=== PATIENT | female | born 1960 | race Caucasian/White ===

== ENCOUNTER 2020-04-20 05:09 | Inpatient (IN) | payer BC ==
[2020-04-20 05:53] LABS: Absolute Lymphocytes (CBC) 2.8 K/uL (0.7-4.9); Basophils % 0.5 % (0-1.3); Hematocrit 41.3 % (36.0-45.0); Lymphocytes % 28.6 % (15.3-44.8); MPV 8.8 fL (7.6-11.3); RBC Red Blood Cell Count 4.07 M/uL (3.86-4.86)
[2020-04-20] MEDS ORDERED: ONDANSETRON 4 MG/2 ML VIAL ONE (05:59)
[2020-04-20] MEDS ORDERED: MORPHINE 4 MG/ML SYR ONE (05:59)
[2020-04-20] MEDS ORDERED: NA CHLORIDE 0.9% 1,000 ML ONE ×2 (05:59→06:25)
[2020-04-20] MEDS ORDERED: HYDROMORPHONE HCL 1 MG/ML INJ ONE (06:24)
[2020-04-20] MEDS ORDERED: METOPROLOL TARTRATE 5 MG/5 ML INJ IV ONE (07:28)
[2020-04-20 07:59] LABS: Albumin 3.8 g/dL (3.4-5.0); Bilirubin Direct 0.2 mg/dL (0-0.2); Bilirubin Total 0.6 mg/dL (0.2-1.0); Potassium 4.2 mmol/L (3.5-5.1); Protein, Total 7.2 g/dL (6.4-8.2)
--- NOTE | 2020-04-20 08:51 | RAD REPORT ---
EXAM DESCRIPTION: CT - Abdomen Pelvis W Contrast - 04/20/2020 8:30 am CLINICAL HISTORY: Abdominal pain COMPARISON: none. TECHNIQUE: Computed axial tomography of the abdomen pelvis was obtained. 100 cc Isovue-300 was admin istered intravenously. Oral contrast was not requested which limits evaluation of bowel and appendix. All CT scans are performed using dose optimization technique as appropriate and may include automated exposure control or mA/KV adjustment according to patient size. FINDINGS: The liver has heterogeneous density. Cholecystectomy. The spleen, pancreas, adrenals and kidneys unremarkable Mild posterior subluxation of L1 on L2. Spondylosis involves the thoracic and lumbar spine. The appendix is not clearly seen. Evaluation is limited secondary to the lack of oral contrast. Small amount of ascites surrounds the liver and within the pelvis. Hysterectomy. Moderate amount of s tool within the right colon IMPRESSION: Heterogeneous liver probably secondary to inflammation. Small amount of ascites
--- NOTE | 2020-04-20 08:52 | RAD REPORT ---
EXAM DESCRIPTION: René Single View04/20/2020 6:48 am CLINICAL HISTORY: Chest pain COMPARISON: none FINDINGS: The lungs appear clear of acute infiltrate. The heart is mildly enlarged. Breast implants IMPRESSION: No acute abnormalities displayed
--- NOTE | 2020-04-20 10:03 | ER ---
Nurse's Notes [facility] Name: Gracia Delarosa Age: 59 yrs Sex: Female : 1960 Arrival Date: 04/20/2020 Time: 05:14 Bed 8 Private MD: Diagnosis: Abdominal tenderness-intractable, sp lap gregoria ;Constipation Presentation: 04/20 05:24 Chief complaint: Patient states: I am having abdominal pain on the right lower side rr5 started 9 PM last night and feel nauseous. had my gallbladder removed last Wednesday. denies fever. Coronavirus screen: Client denies travel out of the [place] in the last 14 days. At this time, the client does not indicate any symptoms associated with coronavirus-19. Ebola Screen: Patient negative for fever greater than or equal to 101.5 degrees Fahrenheit, and additional compatible Ebola Virus Disease symptoms Patient denies exposure to infectious person. Patient denies travel to an Ebola-affected area in the 21 days before illness onset. Initial Sepsis Screen: Does the patient meet any 2 criteria? No. Patient's initial sepsis screen is negative. Does the patient have a suspected source of infection? Yes: Acute abdominal pain. Risk Assessment: Do you want to hurt yourself or someone else? Patient reports no desire to harm self or others. Onset of symptoms was April 19, 2020 at 21:00. 05:24 Method Of Arrival: Wheelchair rr5 05:24 Acuity: GORDON 3 rr5 Historical: - Allergies: 05:33 Codeine; rr5 - PMHx: 05:32 Hypothyroidism; Hypertension; GERD; Depression; Rheumatoid Arthritis; rr5 - PSHx: 05:32 Tonsillectomy; fusion C3-C5; shoulder surgery; breast augmentation; ectopic ; rr5 Hysterectomy; vaginal lift; tightened vagina; rectal prolapse; Knee surgery; - Immunization history:: Adult Immunizations up to date. - Social history:: Smoking status: unknown Patient uses alcohol, on a daily basis. Patient/guardian denies using street drugs. Screenin:54 Abuse screen: Denies threats or abuse. Denies injuries from another. Nutritional mg2 screening: No deficits noted. Tuberculosis screening: No symptoms or risk factors identified. Fall Risk IV access (20 points). Assessment: 05:52 General: Appears in no apparent distress. comfortable, Behavior is calm, cooperative. mg2 Pain: Complains of pain in abdomen Pain does not radiate. Pain currently is 8 out of 10 on a pain scale. Quality of pain is described as aching, Pain began gradually, Is intermittent. Neuro: Level of Consciousness is awake, alert, obeys commands, Oriented to person, place, time, situation. Cardiovascular: Capillary refill < 3 seconds Patient's skin is warm and dry. Respiratory: Airway is patent Respiratory effort is even, unlabored, Respiratory pattern is regular, symmetrical. GI: Bowel sounds present X 4 quads. Abd is soft. GI: Reports lower abdominal pain, nausea. : No signs and/or symptoms were reported regarding the genitourinary system. EENT: No signs and/or symptoms were reported regarding the EENT system. Derm: Skin is intact, is healthy with good turgor, Skin is pink, warm \T\ dry. normal. Musculoskeletal: Circulation, motion, and sensation intact. Capillary refill < 3 seconds. 06:15 Reassessment: Patient appears in no apparent distress at this time. ED provider aware rr5 with order made and carried out Patient states symptoms have not improved. 07:00 Reassessment: ED provider aware for the BP 196/117 mmHg with order made and carried out.rr5 07:34 Reassessment: Pt requesting more pain medication. Informed Dr Tyler and no pain sv medication to be given at this time until after the CT is done and read. Informed pt of POC. 07:34 Reassessment: No changes from previously documented assessment. Patient and/or family sv updated on plan of care and expected duration. Pain level reassessed. Patient is alert, oriented x 3, equal unlabored respirations, skin warm/dry/pink. GI: Abdomen is flat, bruised on right upper quadrant, left upper quadrant, right lower quadrant and left lower quadrant. 08:01 Reassessment: Informed Zehra in CT pt's creatinine is resulted. sv 08:30 Reassessment: Patient appears in no apparent distress at this time. No changes from sv previously documented assessment. Patient and/or family updated on plan of care and expected duration. Pain level reassessed. Patient is alert, oriented x 3, equal unlabored respirations, skin warm/dry/pink. 10:14 Reassessment: Patient appears in no apparent distress at this time. No changes from sv previously documented assessment. Patient and/or family updated on plan of care and expected duration. Pain level reassessed. Patient is alert, oriented x 3, equal unlabored respirations, skin warm/dry/pink. 11:30 Reassessment: Patient appears in no apparent distress at this time. Patient and/or sv family updated on plan of care and expected duration. Pain level reassessed. Patient is alert, oriented x 3, equal unlabored respirations, skin warm/dry/pink. 13:10 Reassessment: Dr Mccall at the bedside. sv 13:50 Reassessment: Patient appears in no apparent distress at this time. Patient and/or sv family updated on plan of care and expected duration. Pain level reassessed. Patient is alert, oriented x 3, equal unlabored respirations, skin warm/dry/pink. Pt stated that her pain has come back and is requesting pain medication. Informed Dr Mccall, medication order received. See MAR. 14:04 Reassessment: Patient appears in no apparent distress at this time. Patient and/or sv family updated on plan of care and expected duration. Pain level reassessed. Patient is alert, oriented x 3, equal unlabored respirations, skin warm/dry/pink. Vital Signs: 05:24 BP 178 / 135; Pulse 65; Resp 19; Temp 97.7; Pulse Ox 100% ; Weight 68.04 kg; Height 5 rr5 ft. 7 in. (170.18 cm); Pain 10/10; 06:00 BP 178 / 90; Pulse 73; Resp 18; Pulse Ox 100% on R/A; mg2 06:35 BP 196 / 117; Pulse 77; Resp 19; Pulse Ox 99% ; rr5 07:24 BP 193 / 99; Pulse 66; Resp 19; Pulse Ox 100% ; sv 07:59 BP 172 / 114; Pulse 59; Resp 16; Pulse Ox 100% ; sv 09:06 BP 192 / 86; Pulse 60; Resp 16; Pulse Ox 95% ; sv 10:14 BP 201 / 97; Pulse 64; Resp 16; Pulse Ox 97% ; sv 10:54 BP 160 / 89; Pulse 62; Resp 16; Pulse Ox 96% ; sv 12:15 BP 162 / 78; Pulse 63; Resp 16; Pulse Ox 98% ; sv 13:00 BP 170 / 89; Pulse 67; Resp 18; Pulse Ox 98% on R/A; sv 14:00 BP 170 / 82; Pulse 68; Resp 18; Pulse Ox 99% ; sv 14:45 BP 186 / 91; Pulse 65; Resp 16; Pulse Ox 99% ; sv 05:24 Body Mass Index 23.49 (68.04 kg, 170.18 cm) rr5 ED Course: 05:14 Patient arrived in ED. ag3 05:24 Noé Coleman RN is Primary Nurse. rr5 05:28 Triage completed. rr5 05:49 Elmo Tyler MD is Attending Physician. pkl 05:49 Inserted saline lock: 20 gauge in right antecubital area, using aseptic technique. ds4 05:54 No provider procedures requiring assistance completed. mg2 05:54 Patient has correct armband on for positive identification. Pulse ox on. NIBP on. Door mg2 closed. Warm blanket given. 05:54 Arm band placed on. mg2 06:48 XRAY Chest (1 view) In Process Unspecified. EDMS 07:22 Primary Nurse role handed off by Noé Coleman RN sv 07:22 Helen Padilla RN is Primary Nurse. sv 07:[address] Scan. sv 07:24 Awaiting lab results. sv 08:18 Attending Physician role handed off by Elmo Tyler MD kathy 08:18 Marcio Leon MD is Attending Physician. kathy 08:31 CT Abd/Pelvis - IV Contrast Only In Process Unspecified. EDMS 09:06 Awaiting disposition, Awaiting re-evaluation by ER provider. sv 10:37 Sebastian Mccall MD is Hospitalizing Provider. kathy 15:07 Patient admitted, IV remains in place. intact. sv Administered Medications: Discontinued: NS 0.9% 1000 ml IV at 100 ml/hr once 05:48 Drug: morphine 4 mg Route: IVP; Site: right antecubital; mg2 06:18 Follow up: Response: No adverse reaction mg2 05:48 Drug: Zofran (Ondansetron) 4 mg Route: IVP; Site: right antecubital; mg2 06:18 Follow up: Response: No adverse reaction mg2 05:48 Drug: NS 0.9% 1000 ml Route: IV; Rate: 1000 ml; Site: right antecubital; mg2 07:20 Follow up: Response: No adverse reaction; IV Status: Completed infusion; IV Intake: rr5 1000ml 06:17 Drug: Dilaudid 1 mg Route: IVP; Site: right antecubital; mg2 07:20 Follow up: Response: No adverse reaction; No change in condition; Pain is unchanged, rr5 physician notified; RASS: Alert and Calm (0) 07:10 Drug: Lopressor 5 mg Route: IVP; Site: right antecubital; rr5 07:58 Follow up: Response: No adverse reaction sv 07:20 Drug: NS 0.9% 1000 ml Route: IV; Rate: 100 ml/hr; Site: right antecubital; rr5 10:13 Drug: NS 0.9% 500 ml Route: IV; Rate: bolus; Site: right antecubital; sv 11:00 Follow up: Response: No adverse reaction; IV Status: Completed infusion; IV Intake: sv 500ml 10:13 Drug: TORadol 30 mg Route: IVP; Site: right antecubital; sv 11:00 Follow up: Response: No adverse reaction sv 11:00 Drug: NS 0.9% 1000 ml Route: IV; Rate: 125 ml/hr; Site: right antecubital; sv 14:30 Follow up: Response: No adverse reaction; IV Status: Infusion continued upon admission sv 11:30 Drug: Pepcid 20 mg Route: IVP; Site: right antecubital; sv 12:00 Follow up: Response: No adverse reaction sv 12:24 Not Given (Patient stated is having regular bowel movements and thinks its not vg1 necessary to take the medication. Provider notified.): Lactulose 30 grams 45 ml PO once 12:25 Not Given (Patient stated is having regular bowel movements and thinks its not vg1 necessary to take medication. Provider notified.): Dulcolax Suppository 10 mg MD once 13:53 Drug: TORadol 30 mg Route: IVP; Site: right antecubital; sv 14:04 Follow up: Response: No adverse reaction sv 14:03 Drug: Lovenox 1 mg/kg Route: Sub-Q; Site: left lower abdomen; sv 14:30 Follow up: Response: No adverse reaction sv Intake: 07:20 IV: 1000ml; Total: 1000ml. rr5 11:00 IV: 500ml; Total: 1500ml. sv Outcome: 10:02 ER care complete, transfer ordered by . kathy 10:39 Decision to Hospitalize by Provider. kathy 15:07 Admitted to Med/surg accompanied by tech, via wheelchair, room 231, with chart, Report sv called to Yajaira LINDSAY 15:07 Condition: stable 15:07 Instructed on the need for admit. 15:12 Patient left the ED. sv Signatures: Dispatcher [employer] Helen Lama RN RN Marcio Mathur MD MD cha Lam, Pin, MD MD pkl Swanson, Donovan ds4 Angel Roe RN RN [facility] Jacquelin Bennett Raymond, RN RN rr5 Maye Ferrari RN vg1 Corrections: (The following items were deleted from the chart) 05:33 05:32 Home Meds: Codeine Oral; rr5 rr5
--- NOTE | 2020-04-20 10:03 | EDPHYS ---
Physician Documentation [facility] [place] Name: Gracia Delarosa Age: 59 yrs Sex: Female : 1960 Arrival Date: 04/20/2020 Time: 05:14 Bed 8 Private MD: GENA Physician Marcio Leon HPI: 04/20 06:00 This 59 yrs old Female presents to ER via Wheelchair with complaints of Abdominal Pain. pkl 06:00 The patient presents with abdominal pain in the right upper quadrant. Onset: The pkl symptoms/episode began/occurred last night. The symptoms do not radiate. Associated signs and symptoms: none. S/P Lap. gregoria 04/15/20. Historical: - Allergies: 05:33 Codeine; rr5 - PMHx: 05:32 Hypothyroidism; Hypertension; GERD; Depression; Rheumatoid Arthritis; rr5 - PSHx: 05:32 Tonsillectomy; fusion C3-C5; shoulder surgery; breast augmentation; ectopic ; rr5 Hysterectomy; vaginal lift; tightened vagina; rectal prolapse; Knee surgery; - Immunization history:: Adult Immunizations up to date. - Social history:: Smoking status: unknown Patient uses alcohol, on a daily basis. Patient/guardian denies using street drugs. ROS: 06:00 Eyes: Negative for injury, pain, redness, and discharge, ENT: Negative for injury, pkl pain, and discharge, Neck: Negative for injury, pain, and swelling, Cardiovascular: Negative for chest pain, palpitations, and edema, Respiratory: Negative for shortness of breath, cough, wheezing, and pleuritic chest pain, Abdomen/GI: Negative for abdominal pain, nausea, vomiting, diarrhea, and constipation, Back: Negative for injury and pain, : Negative for injury, bleeding, discharge, and swelling, MS/Extremity: Negative for injury and deformity. 06:00 Skin: Positive for skin tear both forearms. 06:00 Neuro: Positive for altered mental status. Exam: 06:16 Head/Face: Normocephalic, atraumatic. Eyes: Pupils equal round and reactive to light, pkl extra-ocular motions intact. Lids and lashes normal. Conjunctiva and sclera are non-icteric and not injected. Cornea within normal limits. Periorbital areas with no swelling, redness, or edema. ENT: Nares patent. No nasal discharge, no septal abnormalities noted. Tympanic membranes are normal and external auditory canals are clear. Oropharynx with no redness, swelling, or masses, exudates, or evidence of obstruction, uvula midline. Mucous membranes moist. Neck: Trachea midline, no thyromegaly or masses palpated, and no cervical lymphadenopathy. Supple, full range of motion without nuchal rigidity, or vertebral point tenderness. No Meningismus. Chest/axilla: Normal chest wall appearance and motion. Nontender with no deformity. No lesions are appreciated. Cardiovascular: Regular rate and rhythm with a normal S1 and S2. No gallops, murmurs, or rubs. Normal PMI, no JVD. No pulse deficits. Respiratory: Lungs have equal breath sounds bilaterally, clear to auscultation and percussion. No rales, rhonchi or wheezes noted. No increased work of breathing, no retractions or nasal flaring. 06:16 Abdomen/GI: Bowel sounds: normal, Palpation: soft, mild abdominal tenderness, in the right upper quadrant. 06:16 Back: Exam negative for acute changes. 06:16 : Exam negative for acute changes. 06:16 Musculoskeletal/extremity: Exam is negative for acute changes. 06:16 Skin: Exam negative for rash. 06:16 Neuro: Orientation: is normal, Mentation: is normal, Cranial nerves: grossly normal, Motor: is normal. Vital Signs: 05:24 BP 178 / 135; Pulse 65; Resp 19; Temp 97.7; Pulse Ox 100% ; Weight 68.04 kg; Height 5 rr5 ft. 7 in. (170.18 cm); Pain 10/10; 06:00 BP 178 / 90; Pulse 73; Resp 18; Pulse Ox 100% on R/A; mg2 06:35 BP 196 / 117; Pulse 77; Resp 19; Pulse Ox 99% ; rr5 07:24 BP 193 / 99; Pulse 66; Resp 19; Pulse Ox 100% ; sv 07:59 BP 172 / 114; Pulse 59; Resp 16; Pulse Ox 100% ; sv 09:06 BP 192 / 86; Pulse 60; Resp 16; Pulse Ox 95% ; sv 10:14 BP 201 / 97; Pulse 64; Resp 16; Pulse Ox 97% ; sv 10:54 BP 160 / 89; Pulse 62; Resp 16; Pulse Ox 96% ; sv 12:15 BP 162 / 78; Pulse 63; Resp 16; Pulse Ox 98% ; sv 13:00 BP 170 / 89; Pulse 67; Resp 18; Pulse Ox 98% on R/A; sv 14:00 BP 170 / 82; Pulse 68; Resp 18; Pulse Ox 99% ; sv 14:45 BP 186 / 91; Pulse 65; Resp 16; Pulse Ox 99% ; sv 05:24 Body Mass Index 23.49 (68.04 kg, 170.18 cm) rr5 MDM: 05:49 Patient medically screened. pkl 10:02 Differential diagnosis: bowel obstruction, gastritis, Hepatitis, non-specific abd pain, kathy pancreatitis, Peptic Ulcer Disease, Peritonitis. Data reviewed: vital signs, nurses notes, lab test result(s), EKG, radiologic studies, CT scan, plain films. Data interpreted: monitoring tech: rate is 60 beats/min, Pulse oximetry: on room air is 95 %. Test interpretation: by ED physician or midlevel provider: ECG, plain radiologic studies. Counseling: I had a detailed discussion with the patient and/or guardian regarding: the historical points, exam findings, and any diagnostic results supporting the discharge/admit diagnosis, lab results, radiology results, the need to transfer to another facility, for higher level of care, [facility] does not immediately have the required specialist. 04/20 05:31 Order name: Basic Metabolic Panel; Complete Time: 08:05 lp1 04/20 05:31 Order name: CBC with Diff; Complete Time: 07:07 lp1 04/20 05:31 Order name: LFT's; Complete Time: 08:05 lp1 04/20 05:31 Order name: PT-INR lp1 04/20 05:31 Order name: XRAY Chest (1 view); Complete Time: 09:48 lp1 04/20 05:57 Order name: Lipase; Complete Time: 08:05 EDMS 04/20 07:21 Order name: CT Abd/Pelvis - IV Contrast Only; Complete Time: 09:48 pkl 04/20 11:00 Order name: COVID-19 sv 04/20 12:33 Order name: CBC with Automated Diff EDMS 04/20 12:33 Order name: CBC with Automated Diff EDMS 04/20 12:33 Order name: Comprehensive Metabolic Panel EDMS 04/20 12:33 Order name: Comprehensive Metabolic Panel EDMS 04/20 12:33 Order name: Lactate EDND 04/20 12:33 Order name: Lactate EDND 04/20 12:33 Order name: Procalcitonin EDND 04/20 12:33 Order name: Procalcitonin EDND 04/20 13:53 Order name: SARS-COV-2 RT PCR EDND 04/20 05:31 Order name: EKG; Complete Time: 05:32 lp1 04/20 05:31 Order name: IV Saline Lock; Complete Time: 05:49 lp1 04/20 05:31 Order name: Labs collected and sent; Complete Time: 05:49 lp1 04/20 05:31 Order name: O2 Per Protocol; Complete Time: 05:49 lp1 04/20 05:31 Order name: O2 Sat Monitoring; Complete Time: 05:49 lp1 04/20 05:50 Order name: IV Saline Lock; Complete Time: 05:54 mg2 04/20 05:50 Order name: Labs collected and sent; Complete Time: 05:54 mg2 04/20 12:33 Order name: CONS Pharmacy Consult EDND 04/20 12:33 Order name: Heart Healthy EDND Administered Medications: Discontinued: NS 0.9% 1000 ml IV at 100 ml/hr once 05:48 Drug: morphine 4 mg Route: IVP; Site: right antecubital; mg2 06:18 Follow up: Response: No adverse reaction mg2 05:48 Drug: Zofran (Ondansetron) 4 mg Route: IVP; Site: right antecubital; mg2 06:18 Follow up: Response: No adverse reaction mg2 05:48 Drug: NS 0.9% 1000 ml Route: IV; Rate: 1000 ml; Site: right antecubital; mg2 07:20 Follow up: Response: No adverse reaction; IV Status: Completed infusion; IV Intake: rr5 1000ml 06:17 Drug: Dilaudid 1 mg Route: IVP; Site: right antecubital; mg2 07:20 Follow up: Response: No adverse reaction; No change in condition; Pain is unchanged, rr5 physician notified; RASS: Alert and Calm (0) 07:10 Drug: Lopressor 5 mg Route: IVP; Site: right antecubital; rr5 07:58 Follow up: Response: No adverse reaction sv 07:20 Drug: NS 0.9% 1000 ml Route: IV; Rate: 100 ml/hr; Site: right antecubital; rr5 10:13 Drug: NS 0.9% 500 ml Route: IV; Rate: bolus; Site: right antecubital; sv 11:00 Follow up: Response: No adverse reaction; IV Status: Completed infusion; IV Intake: sv 500ml 10:13 Drug: TORadol 30 mg Route: IVP; Site: right antecubital; sv 11:00 Follow up: Response: No adverse reaction sv 11:00 Drug: NS 0.9% 1000 ml Route: IV; Rate: 125 ml/hr; Site: right antecubital; sv 14:30 Follow up: Response: No adverse reaction; IV Status: Infusion continued upon admission sv 11:30 Drug: Pepcid 20 mg Route: IVP; Site: right antecubital; sv 12:00 Follow up: Response: No adverse reaction sv 12:24 Not Given (Patient stated is having regular bowel movements and thinks its not vg1 necessary to take the medication. Provider notified.): Lactulose 30 grams 45 ml PO once 12:25 Not Given (Patient stated is having regular bowel movements and thinks its not vg1 necessary to take medication. Provider notified.): Dulcolax Suppository 10 mg ND once 13:53 Drug: TORadol 30 mg Route: IVP; Site: right antecubital; sv 14:04 Follow up: Response: No adverse reaction sv 14:03 Drug: Lovenox 1 mg/kg Route: Sub-Q; Site: left lower abdomen; sv 14:30 Follow up: Response: No adverse reaction sv Disposition: 04/20/20 10:39 Hospitalization ordered by Sebastian Mccall for Observation. Preliminary diagnosis are Abdominal tenderness - intractable, sp lap gregoria , Constipation. - Bed requested for Telemetry/MedSurg (observation). - Status is Observation. sv - Condition is Fair. - Problem is new. - Symptoms have improved. Signatures: Dispatcher [employer] Helen Lama, RN Johanna Kimball RN Marcio Segura MD MD cha Lam, Pin, MD MD pkl Pena, Laura, RN RN lp1 Angel Roe RN RN mg2 Roque, Raymond, RN RN rr5 Maye Ferrari RN vg1 Corrections: (The following items were deleted from the chart) 05:33 05:32 Home Meds: Codeine Oral; rr5 rr5 05:52 05:31 EKG - Nurse/Tech ordered. lp1 mg2 05:57 05:32 MAGNESIUM+C.LAB.BRZ ordered. EDMS EDMS 05:57 05:32 PROBNP+C.LAB.BRZ ordered. EDMS EDMS 05:57 05:32 TROPONIN (EMERG DEPT USE ONLY)+C.LAB.BRZ ordered. EDMS EDMS 05:58 05:31 Cardiac monitoring ordered. lp1 ds4 05:58 05:49 BASIC METABOLIC PANEL+C.LAB.BRZ ordered. EDMS EDMS 05:58 05:49 CBC+H.LAB.BRZ ordered. EDMS EDMS 05:58 05:49 HEPATIC FUNCTION+C.LAB.BRZ ordered. EDMS EDMS 05:58 05:49 LIPASE+C.LAB.BRZ ordered. EDMS EDMS 05:58 05:51 LIPASE+C.LAB.BRZ ordered. EDMS EDMS 05:58 05:51 HEPATIC FUNCTION+C.LAB.BRZ ordered. EDMS EDMS 05:58 05:51 BASIC METABOLIC PANEL+C.LAB.BRZ ordered. EDMS EDMS 05:59 05:51 CBC+H.LAB.BRZ ordered. EDMS EDMS 06:16 06:00 Head/Face: Normocephalic, atraumatic. Eyes: Pupils equal round and reactive to pkl light, extra-ocular motions intact. Lids and lashes normal. Conjunctiva and sclera are non-icteric and not injected. Cornea within normal limits. Periorbital areas with no swelling, redness, or edema. ENT: Nares patent. No nasal discharge, no septal abnormalities noted. Tympanic membranes are normal and external auditory canals are clear. Oropharynx with no redness, swelling, or masses, exudates, or evidence of obstruction, uvula midline. Mucous membranes moist. Neck: Trachea midline, no thyromegaly or masses palpated, and no cervical lymphadenopathy. Supple, full range of motion without nuchal rigidity, or vertebral point tenderness. No Meningismus. Chest/axilla: Normal chest wall appearance and motion. Nontender with no deformity. No lesions are appreciated. Cardiovascular: Regular rate and rhythm with a normal S1 and S2. No gallops, murmurs, or rubs. Normal PMI, no JVD. No pulse deficits. Respiratory: Lungs have equal breath sounds bilaterally, clear to auscultation and percussion. No rales, rhonchi or wheezes noted. No increased work of breathing, no retractions or nasal flaring. Abdomen/GI: Soft, non-tender, with normal bowel sounds. No distension or tympany. No guarding or rebound. No evidence of tenderness throughout. Back: No spinal tenderness. No costovertebral tenderness. Full range of motion. pkl 06:16 06:00 Skin: skin tear both forearm. pkl pkl 06:16 06:00 Neuro: Orientation: appropriate for stated age, Mentation: slow to respond, pkl Cranial nerves: grossly normal, Motor: moves all fours, pkl 10:37 10:02 04/20/2020 10:02 Transfer ordered to Other Acute Care Facility. Diagnosis is [facility] Abdominal tenderness - intractable, sp lap gregoria . Reason for transfer: Higher level of care. Accepting physician is dr arin salazar. Condition is Fair. Problem is new. Symptoms have improved. [facility] 14:32 10:39 Hospitalization Ordered by Sebastian Mccall MD for Observation. Preliminary dw diagnosis is Abdominal tenderness - intractable, sp lap gregoria ; Constipation. Bed requested for Telemetry/MedSurg (observation). Status is Observation. Condition is Fair. Problem is new. Symptoms have improved. [facility] 15:12 14:32 04/20/2020 10:39 Hospitalization Ordered by Sebastian Mccall MD for Observation. sv Preliminary diagnosis is Abdominal tenderness - intractable, sp lap gregoria ; Constipation. Bed requested for Telemetry/MedSurg (observation). Status is Observation. Condition is Fair. Problem is new. Symptoms have improved. dw
[2020-04-20] MEDS ORDERED: KETOROLAC 30 MG/ML INJ ONE ×2 (10:22→14:03)
[2020-04-20] MEDS ORDERED: FAMOTIDINE 20 MG/2 ML VIAL IV ONE (11:23)
[2020-04-20] MEDS ORDERED: BISACODYL 10 MG RECTAL SUPP ONE (12:31)
[2020-04-20] MEDS ORDERED: LACTULOSE 20 GM/30 ML UCUP ONE (12:31)
[2020-04-20] MEDS ORDERED: MORPHINE 2 MG/ML SYR IV PRN (12:31)
[2020-04-20] MEDS ORDERED: ACETAMINOPHEN 500 MG TAB PO PRN (12:31)
[2020-04-20] MEDS ORDERED: LACTULOSE 20 GM/30 ML UCUP PO PRN (12:32)
[2020-04-20] MEDS ORDERED: MORPHINE 4 MG/ML SYR IV PRN (13:45)
[2020-04-20] MEDS ORDERED: ENOXAPARIN 80 MG/0.8 ML SQ ONE (14:13)
[2020-04-20] MEDS ORDERED: MINERAL OIL 30 ML UCUP PO ONE (15:00)
[2020-04-20 15:41] VITALS: BMI 23.5
[2020-04-20] MEDS: ENOXAPARIN 80 MG/0.8 ML SQ SCH (16:00)
[2020-04-20] MEDS: NA CHLORIDE 0.9% 1,000 ML IV SCH (16:19)
[2020-04-20 16:48] LABS: Protime INR 0.97
[2020-04-20] MEDS: METHYLPREDNISOLONE 125 MG INJ IV SCH (17:48)
[2020-04-20] MEDS: HYDROMORPHONE HCL 1 MG/ML INJ IV PRN ×2 (17:48→21:56)
[2020-04-21] MEDS ORDERED: HYDROMORPHONE HCL 0.5 MG/0.5 ML INJ IV ONE (00:19)
[2020-04-21] MEDS: METHYLPREDNISOLONE 125 MG INJ IV SCH ×3 (02:05→17:47)
[2020-04-21] MEDS: HYDROMORPHONE HCL 1 MG/ML INJ IV PRN ×6 (02:05→21:30)
[2020-04-21] MEDS: ENOXAPARIN 80 MG/0.8 ML SQ SCH (04:57)
[2020-04-21] MEDS: NA CHLORIDE 0.9% 1,000 ML IV SCH ×3 (04:58→19:00)
[2020-04-21 06:20] LABS: Albumin 3.2 g/dL (3.4-5.0); Bilirubin Total 1.1 mg/dL (0.2-1.0); Potassium 4.1 mmol/L (3.5-5.1)
[2020-04-21 06:41] LABS: Absolute Lymphocytes (CBC) 0.3 K/uL (0.7-4.9); Basophils % 0.1 % (0-1.3); Hematocrit 38.1 % (36.0-45.0); Lymphocytes % 3.2 % (15.3-44.8); RBC Red Blood Cell Count 3.79 M/uL (3.86-4.86)
[2020-04-21 08:31] LABS: White Blood Cell Scan OK (OK)
[2020-04-21 08:32] LABS: Blood Morphology Comment NOT SEEN (NOT SEEN); Platelet Estimate ADEQ
--- NOTE | 2020-04-21 08:45 | P.HP ---
Certification for Inpatient Patient admitted to: Observation With expected LOS: <2 Midnights Patient will require the following post-hospital care: None Practitioner: I am a practitioner with admitting privileges, knowledge of patient current condition, hospital course, and medical plan of care. Services: Services provided to patient in accordance with Admission requirements found in Title 42 Section 412.3 of the Code of Federal Regulations Patient History Date of Service: 04/20/20 Reason for admission: Pleuritic chest pain/right upper quadrant abdominal pain History of Present Illness: Patient is a 59-year-old female came in to the hospital with abdominal discomfort. Pain was mainly in the right upper quadrant but she stated that whenever she took a deep breath she has significant pain. Patient recently had laparoscopic cholecystectomy. She had been doing well after the surgery. However, day 8. After surgery she started feeling the pain which got significantly worse so she came into the emergency room. In the emergency room she had a CT of the abdomen and pelvis with IV contrast. This did not reveal any significant pathology. CT scan findings showed some postoperative changes. Her lab workup was unremarkable. After talking with her, we went ahead and ordered Lovenox as my concern was that she may have had a pulmonary embolism. Patient takes hormone supplementation at home but she does not smoke. She is postoperative as well. Will get a venous Doppler and check a D-dimer. CT scan is saying that they cannot do a PE study so soon after a contrast study of the abdomen and pelvis. Will go ahead and treat her medically. She is not hypoxic or tachycardic at this time. Patient was given a dose of Lovenox now. Will mo nitor closely for observation. Allergies codeine Allergy (Verified 04/20/20 13:43) Hives Home Medications: Cholecalciferol (Vitamin D3) [Vitamin D3] 2,000 iu PO SEECOM 04/20/20 Dicyclomine HCl 20 tab PO BID 04/20/20 Enalapril Maleate 20 tab PO DAILY 04/20/20 Folic Acid 1 tab PO DAILY 04/20/20 Liothyronine Sodium [Cytomel] 5 mcg PO DAILY 04/20/20 Methotrexate Sodium [Methotrexate] 20 tab PO SEECOM 04/20/20 Omeprazole [Prilosec] 40 tab PO DAILY 04/20/20 Thyroid Tab [[place] Thyroid*] 30 tab PO [id number] 04/20/20 Trazodone HCl 50 tab PO BEDTIME 04/20/20 Triamterene/Hydrochlorothiazid [Triamterene-Hctz 37.5-25 mg Cp] 1 tab PO DAILY 04/20/20 estradioL [Estradiol] 2 tab PO DAILY 04/20/20 - Past Medical/Surgical History Has patient received pneumonia vaccine in the past: No Diabetic: No -: hypothyroidism -: HPN -: GERD -: Depression -: Rheumatoid arthritis -: Tonsillectomy -: fusion C3-C5 -: breast augmentation -: Hysterectomy -: R shoulder surgery -: Knee Surgery x3 -: Lap Cholecystectomy -: bunion removal - Family History Mother Medical History: Diabetes - Social History Smoking Status: Former smoker Alcohol use: Yes CD- Drugs: No Caffeine use: Yes Place of Residence: Home Review of Systems 10-point ROS is otherwise unremarkable Physical Examination - Vital Signs Temperature: 97.6 F Blood Pressure: 140/90 Pulse: 88 Respirations: 19 Pulse Ox (%): 95 - Physical Exam General: Alert, In no apparent distress, Oriented x3 HEENT: Atraumatic, PERRLA, Mucous membr. moist/pink, EOMI, Sclerae nonicteric Neck: Supple, 2+ carotid pulse no bruit, No LAD, Without JVD or thyroid abnormality Respiratory: Diminished, Crackles/rales (Right lower lobe) Cardiovascular: Regular rate/rhythm, Normal S1 S2, No murmurs Gastrointestinal: Normal bowel sounds, Soft and benign, Non-distended, No t enderness Musculoskeletal: No clubbing, No swelling, No tenderness Integumentary: No rashes Neurological: Normal gait, Normal speech, Normal strength at 5/5 x4 extr, Normal tone, Sensation intact, Cranial nerves 3-12 intact, Normal affect Lymphatics: No axilla or inguinal lymphadenopathy Assessment & Plan - Problems (Diagnosis) (1) Pleuritic chest pain Current Visit: Yes Status: Acute (2) Status post laparoscopic cholecystectomy Current Visit: Yes Status: Acute (3) Hormone replacement therapy Current Visit: Yes Status: Acute (4) Rheumatoid arthritis Current Visit: Yes Status: Acute - Plan Plan: 1. Continue with Lovenox 1 milligram/kilograms subcutaneously every [address] with PE protocol 3. Monitor hemodynamics closely 4. Venous Doppler 5. D-dimer 6. Pain control 7. Anti-inflammatory 8. IV antibiotic therapy 9. GI and DVT prophylaxis. Patient will be observed and if her studies are positive for a significant PE then we may need to change her to an inpatient hospitalization. If the studies are negative will discharge her home with pain medication. Discharge Plan: Home Plan to discharge in: 24 Hours - Advance Directives Does patient have a Living Will: No Does patient have a Durable POA for Healthcare: No - Code Status/Comfort Care Code Status Assessed: Yes Code Status: Full Code Critical Care: No Time Spent Managing PTS Care (In Minutes): 45
[2020-04-21] MEDS ORDERED: DICYCLOMINE HCL 20 MG PO SCH (09:00)
[2020-04-21] MEDS ORDERED: HOME MED 1 EA UNK (Omeprazole [Prilosec] 40 MG Capsule.Dr) PO SCH (09:00)
[2020-04-21] MEDS ORDERED: ENALAPRIL MALEATE 20 MG PO SCH (09:00)
[2020-04-21] MEDS ORDERED: HOME MED 1 EA UNK (Cholecalciferol (Vitamin D3) [Vitamin D3] 2000 UNIT Capsule) PO SCH (09:00)
[2020-04-21] MEDS: ONDANSETRON 4 MG/2 ML VIAL IV PRN (09:28)
[2020-04-21] MEDS: FOLIC ACID 1 MG TABLET PO SCH (10:29)
--- NOTE | 2020-04-21 11:18 | RAD REPORT ---
EXAM DESCRIPTION: CT - Chest For Pe Angio - 04/21/2020 9:04 am CLINICAL HISTORY: Chest pain. pleuritic chest pain COMPARISON: Abdomen Pelvis W Contrast dated 04/20/2020 TECHNIQUE: CT angiogram of the pulmonary arteries was performed with MIP. All CT scans are performed using dose optimization technique as appropriate and may include automated exposure control or mA/KV adjustment according to patient size. FINDINGS: No evidence of pulmonary thromboembolism. No acute aortic finding demonstrated. Airspace opacity is present in both posterior lung bases may represent bilateral atelectasis or infil trate. Small bilateral pleural effusions are noted. Lower thoracic degenerative change with sclerosis is present. Mild fluid is present in the upper abdo men. IMPRESSION: No evidence of pulmonary thromboembolism. Airspace opacity in both posterior lung bases with small pleural effusions may represent atelectasis or infiltrate.
[2020-04-21] MEDS ORDERED: Levofloxacin500mg IV 500 MG/100 ML BAG IV SCH (14:00)
[2020-04-21] MEDS: PIPER/TAZO/NS 3.375gm 3.375 GM/100 ML BAG IVPB SCH (16:33)
[2020-04-21] MEDS ORDERED: ENOXAPARIN 40 MG/0.4 ML SQ SCH (17:00)
[2020-04-21] MEDS ORDERED: TRAZODONE 50 MG TABLET PO SCH (21:00)
[2020-04-21] MEDS: DICYCLOMINE HCL 10 MG CAP PO SCH (21:32)
[2020-04-21 23:51] VITALS: O2SAT 96
[2020-04-22] MEDS: METHYLPREDNISOLONE 125 MG INJ IV SCH ×2 (01:26→09:04)
[2020-04-22] MEDS: HYDROMORPHONE HCL 1 MG/ML INJ IV PRN ×2 (01:27→05:49)
[2020-04-22] MEDS: PIPER/TAZO/NS 3.375gm 3.375 GM/100 ML BAG IVPB SCH (01:28)
--- NOTE | 2020-04-22 04:51 | P.PN ---
Subjective Date of Service: 04/21/20 Patient has done well during hospital stay. Her clinical symptoms are improved. Her pleuritic pain is somewhat better. Spoke to nurse, NEFTALI Gates, to get incentive spirometer at bedside. CT scan was negative for pulmonary embolism. However patient had bilateral lower lobe infiltrates which probably explains patient's pleurisy. Continue with IV steroids and IV antibiotic therapy at this time. Patient is clinically starting to do better. Can probably go home with oral antibiotic therapy if continues to improve. Review of Systems 10-point ROS is otherwise unremarkable Physical Examination - Vital Signs Temperature: 97.5 F Blood Pressure: 143/74 Pulse: 16 Respirations: 16 Pulse Ox (%): 97 - Physical Exam General: Alert, In no apparent distress, Oriented x3 HEENT: Atraumatic, PERRLA, EOMI Neck: Supple, JVD not distended Respiratory: Crackles/rales ( Bilateral lower lobe crackles with right side greater than the left) Cardiovascular: Regular rate/rhythm, Normal S1 S2, No murmurs Gastrointestinal: Normal bowel sounds, Soft and benign, Non-distended, No tenderness Musculoskeletal: No clubbing, No swelling, No tenderness Integumentary: No rashes Neurological: Normal speech, Normal tone - Studies Laboratory Data (last 24 hrs) 04/21/20 05:35: Sodium 136, Potassium 4.1, BUN 14, Creatinine 0.84, Glucose 173 H, Total Bilirubin 1.1 H, AST 22, ALT 39, Alkaline Phosphatase 109 04/21/20 05:35: WBC 9.4, Hgb 13.0, Hct 38.1, Plt Count 222 Medications List Reviewed: Yes Assessment & Plan - Problems (Diagnosis) (1) Pleuritic chest pain Current Visit: Yes Status: Acute (2) Status post laparoscopic cholecystectomy Current Visit: Yes Status: Acute (3) Hormone replacement therapy Current Visit: Yes Status: Acute (4) Rheumatoid arthritis Current Visit: Yes Status: Acute (5) Pleuritis Current Visit: Yes Status: Acute (6) Pneumonia Current Visit: Yes Status: Acute (7) Immunosuppressed status Current Visit: Yes Status: Acute - Plan Plan: 1. continue with IV antibiotic therapy 2. CT revealed bilateral lower lobe infiltrates 3. repeat chest x-ray 4. Venous Doppler pending 5. incentive spirometer to bedside 6. Pain control 7. IV steroids for pleurisy 8. patient has been on methotrexate and is immunosuppressed. Continue with IV antibiotic therapy and check blood cultures 9. GI and DVT prophylaxis. Discharge Plan: Home Plan to discharge in: Greater than 2 days - Advance Directives Does patient have a Living Will: No Does patient have a Durable POA for Healthcare: No - Code Status/Comfort Care Code Status: Full Code Critical Care: No Time Spent Managing PTS Care (In Minutes): 35
[2020-04-22] MEDS: ONDANSETRON 4 MG/2 ML VIAL IV PRN (05:49)
[2020-04-22] MEDS: NA CHLORIDE 0.9% 1,000 ML IV SCH (05:49)
--- NOTE | 2020-04-22 05:53 | P.DS ---
Discharge Date: 04/21/20 Disposition: ROUTINE DISCHARGE Discharge Condition: GOOD Reason for Admission: Pleuritic chest pain/right upper quadrant abdominal pain - Problems (1) Pleuritic chest pain Status: Acute (2) Status post laparoscopic cholecystectomy Status: Acute (3) Hormone replacement therapy Status: Acute (4) Rheumatoid arthritis Status: Acute (5) Pleuritis Status: Acute (6) Pneumonia Status: Acute (7) Immunosuppressed status Status: Acute Brief History of Present Illness: Patient is a 59-year-old female came in to the hospital with abdominal discomfort. Pain was mainly in the right upper quadrant but she stated that whenever she took a deep breath she has significant pain. Patient recently had laparoscopic cholecystectomy. She had been doing well after the surgery. However, day 8. After surgery she started feeling the pain which got significantly worse so she came into the emergency room. In the emergency room she had a CT of the abdomen and pelvis with IV contrast. This did not reveal any significant pathology. CT scan findings showed some postoperative changes. Her lab workup was unremarkable. After talking with her, we went ahead and ordered Lovenox as my concern was that she may have had a pulmonary embolism. Patient takes hormone supplementation at home but she does not smoke. She is postoperative as well. Will get a venous Doppler and check a D-dimer. CT scan is saying that they cannot do a PE study so soon after a contrast study of the abdomen and pelvis. Will go ahead and treat her medically. She is not hypoxic or tachycardic at this time. Patient was given a dose of Lovenox now. Will monitor closely for observation. Hospital Course: Patient has done well during the hospital stay. At this time patient is stable for discharge home. Continue with outpatient follow-up. Vital Signs/Physical Exam: Temp Pulse Resp BP Pulse Ox 97.5 F 16 L 16 143/74 H 97 04/22/20 04:52 04/22/20 04:52 04/22/20 04:52 04/22/20 04:52 04/22/20 04:52 General: Alert, In no apparent distress, Oriented x3 Laboratory Data at Discharge: WBC 9.4 K/uL (4.3-10.9) 04/21/20 05:35 Hgb 13.0 g/dL (12.0-15.0) 04/21/20 05:35 Hct 38.1 % (36.0-45.0) 04/21/20 05:35 Plt Count 222 K/uL (152-406) 04/21/20 05:35 PT 11.4 SECONDS (9.5-12.5) 04/20/20 16:18 INR 0.97 04/20/20 16:18 Sodium 136 mmol/L (136-145) 04/21/20 05:35 Potassium 4.1 mmol/L (3.5-5.1) 04/21/20 05:35 BUN 14 mg/dL (7-18) 04/21/20 05:35 Creatinine 0.84 mg/dL (0.55-1.3) 04/21/20 05:35 Glucose 173 mg/dL (74-106) H 04/21/20 05:35 Magnesium Cancelled 04/20/20 06:15 Total Bilirubin 1.1 mg/dL (0.2-1.0) H 04/21/20 05:35 AST 22 U/L (15-37) 04/21/20 05:35 ALT 39 U/L (12-78) 04/21/20 05:35 Alkaline Phosphatase 109 U/L (45-117) 04/21/20 05:35 Lipase 121 U/L (73-393) 04/20/20 06:59 Home Medications: Cholecalciferol (Vitamin D3) [Vitamin D3] 2,000 iu PO SEECOM 04/20/20 Dicyclomine HCl 20 tab PO BID 04/20/20 Enalapril Maleate 20 tab PO DAILY 04/20/20 Folic Acid 1 tab PO DAILY 04/20/20 Liothyronine Sodium [Cytomel] 5 mcg PO DAILY 04/20/20 Methotrexate Sodium [Methotrexate] 20 tab PO SEECOM 04/20/20 Omeprazole [Prilosec] 40 tab PO DAILY 04/20/20 Thyroid Tab [[place] Thyroid*] 30 tab PO [id number] 04/20/20 Trazodone HCl 50 tab PO BEDTIME 04/20/20 Triamterene/Hydrochlorothiazid [Triamterene-Hctz 37.5-25 mg Cp] 1 tab PO DAILY 04/20/20 estradioL [Estradiol] 2 tab PO DAILY 04/20/20 Methylprednisolone [Medrol dosepack] 4 mg PO DIRECTED #1 jaclyn 04/22/20 levoFLOXacin [Levaquin] 500 mg PO DAILY #7 tab 04/22/20 New Medications: levoFLOXacin [Levaquin] 500 mg PO DAILY #7 tab Methylprednisolone [Medrol dosepack] 4 mg PO DIRECTED #1 jaclyn Patient Discharge Instructions: OK TO DC IV AND DC HOME. FOLLOW-UP WITH PRIMARY CARE PROVIDER IN 1-2 WEEKS. FOLLOW-UP WITH Hand Crocheter IN 1-2 WEEKS. RETURN TO THE ER IF symptoms worsen. CALL DR. MUÑOZ AT [phone] IF ANY QUESTIONS REGARDING HOSPITAL STAY. PLEASE CALL THE FLOOR AT [phone] IF ANY MEDICATION OR NURSING QUESTIONS. Diet: Regular Activity: No lifting more than 10 lbs Followup: OOT,OOT [Primary Care Provider] - Time spent managing pt's care (in minutes): 35
[2020-04-22] MEDS ORDERED: THYROID 30 MG TAB PO SCH (06:00)
[2020-04-22] MEDS ORDERED: LIOTHYRONINE SOD 5 MCG TAB PO SCH (06:00)
[2020-04-22 06:10] LABS: Absolute Lymphocytes (CBC) 0.4 K/uL (0.7-4.9); Basophils % 0.1 % (0-1.3); Hematocrit 31.6 % (36.0-45.0); Lymphocytes % 4.6 % (15.3-44.8); RBC Red Blood Cell Count 3.14 M/uL (3.86-4.86)
[2020-04-22] MEDS ORDERED: PANTOPRAZOLE 40MG TABLET PO SCH (07:30)
--- NOTE | 2020-04-22 08:52 | RAD REPORT ---
EXAM DESCRIPTION: RAD - Chest Single View - 04/22/2020 7:05 am CLINICAL HISTORY: bilateral lower lobe infiltrates Chest pain. COMPARISON: Chest Single View dated 04/20/2020; Chest For Pe Angio dated 04/21/2020 FINDINGS: Portable technique limits examination quality. Slight progression in bilateral pulmonary opacities seen in the bases noted since comparative study. The heart is upper limit normal in size. Mild scoliosis of the thoracic spine with hardware plate not ed. IMPRESSION: Slight worsening in bibasilar lung opacities since comparative study.
[2020-04-22] MEDS ORDERED: MAXZIDE (HCTZ 25/TRIAMTERENE 37.5MG) TAB PO SCH (09:00)
[2020-04-22] MEDS ORDERED: ENALAPRIL 10 MG TAB PO SCH (09:00)
[2020-04-22] MEDS: DICYCLOMINE HCL 10 MG CAP PO SCH (09:02)
[2020-04-22 09:06] VITALS: BP 169/80
[2020-04-22 09:56] VITALS: TEMP 97.9
[2020-04-22] MEDS: FOLIC ACID 1 MG TABLET PO SCH (10:12)
--- NOTE | 2020-04-22 10:31 | EKG ---
Test Date: 2020-04-21 Test Time: 05:41:27 Facility Maintenance Manager: FADUMO MEASUREMENT RESULTS: Intervals: Rate: 86 [place]: 182 QRSD: 78 QT: 356 QTc: 426 Wing: P: 33 [place]: 182 QRS: -30 T: 34 INTERPRETIVE STATEMENTS: Normal sinus rhythm Possible Left atrial enlargement Left axis deviation Septal infarct, age undetermined Possible Lateral infarct, age undetermined Abnormal ECG No previous ECG available for comparison Electronically Signed On 04-22-20 10:28:02 MINE WEDGE SAWYER by Girish Ward
[2020-04-25] MEDS ORDERED: METHOTREXATE SODIUM 2.5 MG PO SCH (09:00)
[2020-05-01] MEDS ORDERED: VITAMIN D 1000 UNIT TAB PO SCH (09:00)
== END 2020-04-22 10:08 | disposition home or self-care (01) | DRG 313 ==
LOC: ER 05:09 → ERHOLD 12:55 → 2ND 15:04 → OBSVTOIN 04-21 15:36
PROVIDERS: ADMIT Hospitalist; ATTEND Family Medicine
DX: R07.89 Other chest pain (principal); J18.9 Pneumonia, unspecified organism; M19.90 Unspecified osteoarthritis, unspecified site; K21.9 Gastro-esophageal reflux disease without esophagitis; I10 Essential (primary) hypertension; Z88.5 Allergy status to narcotic agent; Z90.710 Acquired absence of both cervix and uterus; Z88.8 Allergy status to other drugs, medicaments and biological substances; Z87.891 Personal history of nicotine dependence; Z79.890 Hormone replacement therapy; Z20.822 Contact with and (suspected) exposure to COVID-19
CPT/HCPCS: 36415; 71045; 71275; 74177; 80048; 80053; 80076; 83605; 83690; 84145; 85025; 85379; 85610; 87040; 93005; 93970; 94010; 96361; 96372; 96374; 96375; 99285; G0378; J1170; J1650; J2405; J2543; J2930; J7030; Q9967; U0003